=== PATIENT | female | born 1990 | race Caucasian/White ===

== ENCOUNTER 2020-05-19 09:34 | Outpatient (REF) | payer MEDICAID, SELFPAY ==
[2020-05-19 19:16] LABS: HCT 41.2 % (36.0-46.0); HGB 13.4 g/dL (11.2-15.7); MCHC 32.5 % (32.0-36.0); MCV 95.4 fL (80-95); MPV 11.2 fL (8.0-11.0); Platelet Count 240 10^3/uL (130-400); RBC 4.32 10^6/uL (3.93-5.22); RDW 13.3 % (11.7-14.6); RDW-SD 47.3 fL; WBC 3.73 10^3/uL (4.4-10.8)
[2020-05-19 19:45] LABS: Bilirubin Negative (Negative); Blood Small (Negative); Clarity Clear (Clear); Glucose Negative (Negative); Ketones Negative (Negative); Leukocyte Esterase Large (Negative); Nitrite Negative (Negative); Specific Gravity 1.015 (1.005-1.025); Urobilinogen 0.2 EU/dL (Up TO 0.2)
[2020-05-19 19:48] LABS: Iron 93 ug/dL (50-170); Total Iron Binding Capacity 275 ug/dL (250-450); Transferrin Sat 34 % (15-50)
[2020-05-19 20:10] LABS: Vitamin D 25 Total 37.7 ng/ml (30-100)
[2020-05-19 20:17] LABS: Albumin 4.5 g/dL (3.4-5.0); Anion Gap 10.7 mmol/L (3-11); BUN 14 mg/dL (7-18); CO2 27.3 mmol/L (21.0-32.0); Calcium 9.1 mg/dL (8.5-10.1); Chloride 101 mmol/L (98-107); Ferritin 45 ng/mL (8-252); Glucose 73 mg/dL (74-106); Potassium 3.9 mmol/L (3.5-5.1); Sodium 139 mmol/L (136-145); TSH (W/Ref FT4) 1.47 uIU/mL (0.36-3.74); Vitamin B12 459 pg/mL (193-986); WBC >50 HPF (0-5)
[2020-05-19 20:18] LABS: Bacteria Many HPF (Negative); C & S Indicated? No/Sq. Contamination; Epithelial Cells Many HPF (Negative); Other Cells Few Transitional (Negative)
[2020-05-19 20:41] LABS: PHOSPHORUS 4.3 mg/dL (2.6-4.7)
== END 2020-05-19 09:54 ==
LOC: NCHCN 09:34
PROVIDERS: PCP Nurse Practitioner Family; Visit Provider Nurse Practitioner Family
DX: M25.59 Pain in other specified joint (principal); R53.83 Other fatigue; R20.2 Paresthesia of skin; Z87.448 Personal history of other diseases of urinary system
CPT/HCPCS: 80069; 82306; 85027; 81003; 81015; 82607; 82728; 83540; 83550; 83735; 84443

== ENCOUNTER 2020-05-26 19:26 | Outpatient (REF) | payer MEDICAID, SELFPAY | END 2020-05-26 19:46 | LOC: NCHCN 19:26 | PROVIDERS: PCP Nurse Practitioner Family; Visit Provider Nurse Practitioner Family | DX: N39.0 Urinary tract infection, site not specified (principal) | CPT/HCPCS: 87086 ==

== ENCOUNTER 2020-06-08 16:03 | Outpatient (REF) | payer MEDICAID, SELFPAY ==
[2020-06-08 19:37] LABS: TSH (W/Ref FT4) 0.97 uIU/mL (0.36-3.74)
[2020-06-09 17:37] LABS: FSH 2.6 mIU/mL (See Note); Prolactin 5.6 ng/mL (See Table)
[2020-06-10 12:19] LABS: IgA 150 mg/dL (85-499); Interpretation (See Note); Tissue Transglutaminase IgA <1.2 U/mL (<4.0)
[2020-06-10 23:10] LABS: Tissue Transglutaminase Ab IgA <1.2 U/mL; Tissue Transglutaminase Ab IgG 2.6 U/mL
[2020-06-11 11:54] LABS: Misc Referral (UVM) See Comments
== END 2020-06-08 16:23 ==
LOC: NCHCN 16:03
PROVIDERS: PCP Nurse Practitioner Family; Visit Provider Nurse Practitioner Family
DX: L68.0 Hirsutism (principal); Z91.89 Other specified personal risk factors, not elsewhere classified
CPT/HCPCS: 82784; 83516; 84403; 83001; 84146; 84443

== ENCOUNTER 2020-07-21 02:39 | Outpatient (CLI) | payer MEDICAID, SELFPAY ==
[2020-07-21 16:42] LABS: FREE T4 0.84 ng/dL (0.76-1.46)
[2020-07-21 21:42] LABS: T3,Free 2.4 pg/mL (2.8-5.3)
[2020-07-21 22:27] LABS: Thyroglobulin Antibody <15 U/mL (<=60)
[2020-07-21 22:28] LABS: Thyroperoxidase Antibody 37 U/mL (<=60)
[2020-07-22 10:42] LABS: Lyme Ab w Rflx to Lyme Confirm Negative (Negative)
[2020-07-23 16:25] LABS: Anaplasma phagocytophilum IgG <1:64 titer (<1:64); Ehrlichia Chaffeensis(HME) IgG <1:64 titer (<1:64)
[2020-07-24 14:17] LABS: Bartonella PCR Negative; Specimen Source BLOOD
[2020-07-24 22:12] LABS: Babesia divergens/MO-1 Negative (Negative); Babesia duncani Negative (Negative); Babesia microti Negative (Negative)
[2020-07-27 10:34] LABS: Misc Referral (MAYO) See Comments
== END 2020-07-21 02:40 | disposition home or self-care (01) ==
LOC: LBO 02:39
PROVIDERS: PCP Nurse Practitioner Family; Visit Provider Naturopath
DX: R53.83 Other fatigue (principal); R42 Dizziness and giddiness; F31.81 Bipolar II disorder; F51.01 Primary insomnia; R61 Generalized hyperhidrosis; E04.8 Other specified nontoxic goiter; E28.2 Polycystic ovarian syndrome; N91.0 Primary amenorrhea; M25.551 Pain in right hip; M25.511 Pain in right shoulder; M79.671 Pain in right foot; M79.2 Neuralgia and neuritis, unspecified
CPT/HCPCS: 36415; 87798; 87801; 84439; 84481; 86376; 86618; 86666; 86800